=== PATIENT | male | born 1940 | race Caucasian/White ===

== ENCOUNTER → 2017-11-23 | Outpatient (CLI) | payer MEDICARE, BC ==
[~2017-11-23] MED LIST: ASPI81CH PO; GLUCHON PO; INDA2.5 PO; NAPR500 PO; POTASSIUM PO; VITAMIN D PO
== END ==
LOC: LAB 15:10
DX: R39.9 Unspecified symptoms and signs involving the genitourinary system (principal)
CPT/HCPCS: 87077; 87086; 87186